=== PATIENT | male | born 1945 | race Caucasian/White ===

== ENCOUNTER → 2024-04-05 09:49 | Outpatient (CLI) | payer OTHER, SELFPAY ==
--- NOTE | 2024-04-05 09:52 | DI.NM.S_ITS ---
PROCEDURE: [place] BONE SCAN WHOLE BODY RADIOPHARMACEUTICAL: 19.8 mCi Tc-99m MDP IV. INDICATIONS: PROSTATE CANCER TECHNIQUE: Delayed whole-body scintigrams were obtained approximately 3-4 hours after intravenous injection of radiotracer. Anterior and posterior views were acquired from vertex to feet. Additional left and right oblique views of the pelvis were obtained. COMPARISON: None. FINDINGS: Small areas increased FDG uptake in the anterior right 3rd and 4th ribs has a linear configuration non most suggestive of rib fractures. Mild radiotracer uptake identified in the bilateral shoulders, bilateral wrists and bilateral ankles compatible with osteoarthritis. No areas of osseous photopenia. No abnormal soft tissue uptake. Activity in the kidneys is normal and symmetric. IMPRESSION: No evidence of osseous metastatic disease. Dictated by: Rosalinda Felix MD, PhD on 04/05/2024 at 14:36 Approved by: Rosalinda Felix MD, PhD on 04/05/2024 at 14:38
== END ==
LOC: NUCM 09:51
PROVIDERS: Referring Provider Internal Medicine Medical Oncology; Visit Provider Internal Medicine Medical Oncology
DX: C61 Malignant neoplasm of prostate (principal); C18.4 Malignant neoplasm of transverse colon; C79.51 Secondary malignant neoplasm of bone
CPT/HCPCS: 78306; A9503

== ENCOUNTER → 2025-02-10 09:56 | Outpatient (CLI) | payer OTHER, SELFPAY ==
--- NOTE | 2025-02-10 10:00 | DI.NM.S_ITS ---
PROCEDURE: [place] BONE SCAN WHOLE BODY RADIOPHARMACEUTICAL: 21.3 mCi Tc-99m MDP IV. INDICATIONS: Prostate cancer; colon cancer TECHNIQUE: Delayed whole-body scintigrams were obtained approximately 3-4 hours after intravenous injection of radiotracer. Anterior and posterior views were acquired from vertex to feet. COMPARISON: [place], [place], [place] BONE SCAN WHOLE BODY, 04/05/2024, 10:54. FINDINGS/IMPRESSION: Stable linear uptake in the right anterior 3rd and 4th ribs, presumably from remote fracture. No suspicious radiotracer uptake. Degenerative uptake in the knees, shoulders and elbows. Dictated by: Damir Shankar M.D. on 02/11/2025 at 10:02 Approved by: Damir Shankar M.D. on 02/11/2025 at 10:03
== END ==
LOC: NUCM 09:58
PROVIDERS: PCP Family Medicine; Referring Provider Internal Medicine Medical Oncology; Visit Provider Internal Medicine Medical Oncology
DX: C61 Malignant neoplasm of prostate (principal); C18.4 Malignant neoplasm of transverse colon; C79.51 Secondary malignant neoplasm of bone
CPT/HCPCS: 78306; A9503